=== PATIENT | female | born 1980 | race Caucasian/White ===

== ENCOUNTER 2018-09-05 07:33 | Emergency (ER) | payer MEDICAID ==
[~2018-09-05] VITALS: Ht 172.7 cm; Wt 96.4 kg
[2018-09-05 08:01] VITALS: BP 134/87; Ht 172.7 cm; Wt 96.4 kg
[2018-09-05] MEDS ORDERED: CLEOCIN HCL300 MG PO (08:47)
[2018-09-05] MEDS ORDERED: HYDROCODON-ACE1 EAC7 PO (08:47)
[2018-09-06] MEDS ORDERED: NORCO 10-325 TA1 TAB PO (15:29)
[2018-09-29 01:10] VITALS: Ht 172.7 cm; Wt 96.4 kg
== END 2018-09-05 09:11 | disposition home or self-care (01) ==
LOC: D.ER 07:33
DX: L02.512 Cutaneous abscess of left hand (principal); B19.20 Unspecified viral hepatitis C without hepatic coma; F17.200 Nicotine dependence, unspecified, uncomplicated

== ENCOUNTER 2018-09-06 13:21 | Emergency (ER) | payer MEDICAID ==
[~2018-09-06] VITALS: Ht 172.7 cm; Wt 100.0 kg
[~2018-09-06 13:21] MED LIST: CLEOCIN HCL300 MG PO; HYDROCODON-ACE1 EAC7 PO
[2018-09-06 13:35] VITALS: Ht 172.7 cm; Wt 100.0 kg
[2018-09-06] MEDS ORDERED: NORCO 10-325 TA1 TAB PO (15:29)
[2018-09-06 15:41] VITALS: BP 132/70
[2018-09-29 01:10] VITALS: Ht 172.7 cm; Wt 100.0 kg
== END 2018-09-06 15:42 | disposition home or self-care (01) ==
LOC: D.ER 13:21
DX: L02.512 Cutaneous abscess of left hand (principal); B19.20 Unspecified viral hepatitis C without hepatic coma; F17.200 Nicotine dependence, unspecified, uncomplicated

== ENCOUNTER 2018-09-28 19:51 | Observation (INO) | payer MEDICAID ==
[2018-09-28] VITALS (12 sets, daily range): BP systolic 101–124; BP diastolic 56–99
[~2018-09-28] VITALS: Ht 172.7 cm; Wt 91.2 kg
--- NOTE | ~2018-09-28 | MORECARE ---
CASE MANAGEMENT DISCHARGE SUMMARY PATIENT: CAROLYN ACOSTA UNIT: [id number] ADM DATE: 09/28/18 AGE: 38 : 80 SEX: F ROOM/BED: D.2312 AUTHOR: MICHELE RUTH PHYSICIAN: REFERRING PHYSICIAN: JAZMINE CARRILLO MD DATE OF SERVICE: 09/30/18 Discharge Plan Patient Name: CAR[facility]YN ACOSTA [facility] [facility] 1980 Planned Disposition: Psych facility Anticipated Discharge Date: 09/30/18 Discharge Date: Expected LOS: 2 Initial Reviewer: [email or web address] Initial Review Date: 09/30/2018 Generated: 09/30/18 7:40 pm Comments DCP- Discharge Planning Updated by [email or web address]: Jennifer Meier on 09/30/18 5:[address] Late Entry 09/30/18 @ 0945 Patient Name: CAROLYN ACOSTA Admission Status: ER Accout number: [id number] Admission Date: 09-28-2018 : 1980 Admission Diagnosis: Attending: JAZMINE CARRILLO Current LOS: 2 Anticipated DC Date: 09-30-2018 Planned Disposition: Psych facility Primary Insurance: MEDICAID [place] Discharge Planning Comments: CM received notice that patient is cleared medically stable for discharge to psychiatric facility. Patient states that she is prefer [facility] in [place] for placement. CM notified Edgard at transfer center of placement and faxed records. CM awaiting to here back for placement. Imaging Analyst: Jennifer Meier Last DP export: 09/30/18 5:26 Patient Name: CAROLYN ACOSTA Page [id number] at 1840 All edits/amendments must be made on the electronic document DICTATION DATE: 09/30/181838 MENTAL HEALTH DIRECTOR: SERENE 09/30/181838 RPT#: [id number] DC DATE: STATUS: ADM IN [facility] [address] [place] [address] END OF REPORT
--- NOTE | ~2018-09-28 | MORECARE ---
CASE MANAGEMENT DISCHARGE SUMMARY PATIENT: CAROLYN ACOSTA UNIT: [id number] ADM DATE: 09/28/18 AGE: 38 : 80 SEX: F ROOM/BED: D.2312 AUTHOR: MICHELE RUTH PHYSICIAN: REFERRING PHYSICIAN: JAZMINE CARRILLO MD DATE OF SERVICE: 09/30/18 Discharge Plan Patient Name: CAROLYN ACOSTA Facility: [facility] : 1980 Planned Disposition: Psych facility Anticipated Discharge Date: 09/30/18 Discharge Date: Expected LOS: 2 Initial Reviewer: [email or web address] Initial Review Date: 09/30/2018 Generated: 09/30/18 7:48 pm Comments DCP- Discharge Planning Updated by [email or web address]: Jennifer Meier on 09/30/18 5:[address] Late Entry 09/30/18 @ 1515 CM received notice that [facility] in [facility] has accepted patient. [facility] will transport patient to facility when available. Nursing will call report to facility. CM will continue to follow and assist as needed with discharge planning / needs. DCP- Discharge Planning Updated by [email or web address]: Jennifer Meier on 09/30/18 5:[address] Late Entry 09/30/18 @ 0945 Patient Name: CAROLYN ACOSTA Admission Status: ER Accout number: [id number] Admission Date: 09-28-2018 : 1980 Admission Diagnosis: Attending: JAZMINE CARRILLO Current LOS: 2 Anticipated DC Date: 09-30-2018 Planned Disposition: Psych facility Primary Insurance: MEDICAID [place] Discharge Planning Comments: CM received notice that patient is cleared medically stable for discharge to psychiatric facility. Patient states that she is prefer [facility] in [place] for placement. CM notified Edgard at transfer center of placement and faxed records. CM awaiting to here back for placement. Night Shift Supervisor: Jennifer Guzman DP export: 09/30/18 5:40 Patient Name: CAROLYN ACOSTA Page [id number] at 1848 All edits/amendments must be made on the electronic document DICTATION DATE: 09/30/181846 MACHINE SPRAYER: SERENE 09/30/181846 RPT#: [id number] DC DATE: STATUS: ADM IN [facility] [address] [place] [address] END OF REPORT
--- NOTE | ~2018-09-28 | MORECARE ---
CASE MANAGEMENT DISCHARGE SUMMARY PATIENT: CAROLYN ACOSTA UNIT: [id number] ADM DATE: 09/28/18 AGE: 38 : 80 SEX: F ROOM/BED: D.2312 AUTHOR: MICHELE RUTH PHYSICIAN: REFERRING PHYSICIAN: JAZMINE CARRILLO MD DATE OF SERVICE: 10/02/18 Discharge Plan Patient Name: CAROLYN ACOSTA Facility: [facility] : 1980 Planned Disposition: Psych facility Anticipated Discharge Date: 09/30/18 Discharge Date: 09/30/2018 Expected LOS: 2 Initial Reviewer: [email or web address] Initial Review Date: 09/30/2018 Generated: 10/02/18 11:26 am Comments DCP- Discharge Planning Updated by [email or web address]: Jennifer Meier on 09/30/18 5:[address] Late Entry 09/30/18 @ 1515 CM received notice that [facility] in [facility] has accepted patient. [facility] facility when available. Nursing will call report to facility. CM will continue to follow and assist as needed with discharge planning / needs. DCP- Discharge Planning Updated by [email or web address]: Jennifer Meier on 09/30/18 5:[address] Late Entry 09/30/18 @ 0945 Patient Name: CAROLYN ACOSTA Admission Status: ER Accout number: [id number] Admission Date: 09-28-2018 : 1980 Admission Diagnosis: Attending: JAZMINE CARRILLO Current LOS: 2 Anticipated DC Date: 09-30-2018 Planned Disposition: Psych facility Primary Insurance: [place]ID [place] Discharge Planning Comments: CM received notice that patient is cleared medically stable for discharge to psychiatric facility. Patient states that she is prefer [facility] in [place] for placement. CM notified Edgard at transfer center of placement and faxed records. CM awaiting to here back for placement. [employer] Supervisor: Jennifer Meier Last DP export: 09/30/18 5:48 Patient Name: CAROLYN ACOSTA Page [phone] at 1026 All edits/amendments must be made on the electronic document DICTATION DATE: 10/02/18 1025 LAYOUT WORKER: SERENE 10/02/18 1025 RPT#: [id number] DC DATE:09/30/18 STATUS: DIS IN [facility] [address] [facility] [address] END OF REPORT
--- NOTE | ~2018-09-28 | CN ---
PATIENT NAME:CAROLYN ACOSTA MEDICAL RECORD: [id number] : [birth year] LOCATION:[facility].2312 ADMIT DATE: 09/28/18 ACCOUNT: [id number] CONSULTING PHYSICIAN: DENNY HARRIS MD REFERRING PHYSICIAN: JAZMINE CARRILLO MD DATE OF CONSULTATION: 09/29/2018 PSYCHIATRIC CONSULTATION IDENTIFYING DATA: The patient is 38 years old and she is admitted to the hospital on a voluntary basis. CHIEF COMPLAINT: Overdose. HISTORY OF PRESENT ILLNESS: The patient took all or most of a bottle of her mother's blood pressure medicine. The medicine was clonidine. She lost consciousness and was brought to the hospital. When asked about it, she says that she was just doing something stupid, but she endorses that at the moment at least she was trying to kill herself. She denies any thoughts of harming others and psychotic symptoms. She endorses neurovegetative depressive symptoms. She has a diagnosis of bipolar disorder and was a patient at [facility] until they were closed in March of this year. Since then, she has been without her medications. She also has a problem with drug addiction, particularly methamphetamine, which she uses intravenously. 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 MENTAL STATUS EXAMINATION: The patient is awake; alert; and oriented to person, place, time, and situation. Her mood is depressed. Her affect is constricted. Thought processes are circumstantial. Memory, concentration, and abstraction abilities are mildly impaired and she denies any active intent to harm others and psychotic symptoms. She says she no longer has thoughts about harming herself. DIAGNOSTIC IMPRESSION: 1. Status post deliberate overdose. 2. Bipolar disorder, depressed phase. 3. Methamphetamine abuse. PLAN: At this time, the patient needs to be transferred to acute inpatient psychiatric care once medically stabilized. She is going to need to be placed on mood stabilizing antidepressant medications as deemed appropriate based upon her history and presentation. After that, she certainly will need to be referred to either residential or outpatient substance abuse services. TRANSINT:[id number] Voice Confirmation ID: [id number] DOCUMENT ID: [id number] DENNY HARRIS MD at 0932 CC: [id number] DICTATION DATE: 09/29/181649 CLINICAL NURSING INSTRUCTOR: 09/29/18 1745 ADM IN [facility] [address] [facility] [place] [address]
--- NOTE | ~2018-09-28 | MORECARE ---
CASE MANAGEMENT DISCHARGE SUMMARY PATIENT: CAROLYN ACOSTA UNIT: [id number] ADM DATE: 09/28/18 AGE: 38 : 80 SEX: F ROOM/BED: D.2312 AUTHOR: MICHELE RUTH PHYSICIAN: REFERRING PHYSICIAN: JAZMINE CARRILLO MD DATE OF SERVICE: 09/30/18 Discharge Plan Patient Name: CAROLYN ACOSTA Facility: [facility]:[place] : 1980 Planned Disposition: Psych facility Anticipated Discharge Date: 09/30/18 Discharge Date: Expected LOS: 2 Initial Reviewer: [email or web address] Initial Review Date: 09/30/2018 Generated: 09/30/18 7:26 pm External Providers External Provider: [facility] Next Contact Date: Service Request Date: Service Type: Resolution: Reviewer: Comments: Patient Name: CAROLYN ACOSTA Page [phone] at 1826 All edits/amendments must be made on the electronic document DICTATION DATE: 09/30/181825 CREW ATTENDANT: SERENE 09/30/181825 RPT#: [id number] DC DATE: STATUS: ADM IN [facility] [address] [place] [address] END OF REPORT
[~2018-09-28 19:51] MED LIST changes: +NORCO 10-325 TA1 TAB PO
[2018-09-28 20:43] LABS: BASOPHILS 0.2 % (0-2); EOSINOPHILS 1.9 % (0-7); HEMATOCRIT 39.7 % (36.0-48.0); HEMOGLOBIN 13.9 g/dL (12-16); IMMATURE GRANULOCYTES 0.3 % (0-5); LYMPHOCYTES 35.1 % (15-50); MCH 32.5 pg (26.0-34.0); MCV 92.8 fL (80.0-100.0); MEAN PLATELET VOLUME 11.5 fL (7.4-10.4); MONOCYTES 6.7 % (2-11); NEUTROPHILS 55.8 % (40-80); PLATELET COUNT 213 10x3/uL (130-400); RBC 4.28 10x6/uL (4.00-5.40); WBC 10.5 10x3/uL (4.8-10.8)
[2018-09-28 20:46] LABS: APPEARANCE CLOUDY (CLEAR); BILIRUBIN NEGATIVE (NEGATIVE); COLOR STRAW (YELLOW); GLUCOSE NEGATIVE (NEGATIVE); KETONE NEGATIVE (NEGATIVE); NITRITE NEGATIVE (NEGATIVE); PROTEIN NEGATIVE (NEGATIVE); SPECIFIC GRAVITY 1.005 (1.005-1.020); UROBILINOGEN NORMAL (NORMAL)
[2018-09-28 20:48] LABS: HCG URINE NEGATIVE (NEGATIVE)
[2018-09-28 20:51] LABS: UDS - BARB NEGATIVE QUAL (NEGATIVE); UDS - BENZO NEGATIVE QUAL (NEGATIVE); UDS - COCAINE NEGATIVE QUAL (NEGATIVE); UDS - PCP NEGATIVE QUAL (NEGATIVE)
[2018-09-28 21:03] LABS: ALBUMIN 3.6 g/dL (3.4-5.0); ANION GAP 11.9 mmol/L (8-16); BILIRUBIN - TOTAL 0.41 mg/dL (0.2-1.3); CALCIUM 9.2 mg/dL (8.5-10.1); CARBON DIOXIDE 26.8 mmol/L (21.0-32.0); POTASSIUM - SERUM 3.7 mmol/L (3.5-5.1); PROTEIN - SERUM 7.4 g/dL (6.4-8.2)
[2018-09-28 21:40] LABS: UDS - AMPHET POSITIVE QUAL (NEGATIVE); UDS - OPIATE POSITIVE QUAL (NEGATIVE)
[2018-09-28 21:41] LABS: UDS - THC POSITIVE QUAL (NEGATIVE)
[2018-09-29] VITALS (22 sets, daily range): BP systolic 94–118; BP diastolic 63–87; Ht 172.7 cm; Wt 91.2 kg
[2018-09-29 14:02] LABS: BASOPHILS 0.2 % (0-2); HEMOGLOBIN 14.1 g/dL (12-16); IMMATURE GRANULOCYTES 0.3 % (0-5); LYMPHOCYTES 30.3 % (15-50); MCH 32.3 pg (26.0-34.0); MCHC 33.6 g/dL (31.0-37.0); MEAN PLATELET VOLUME 11.8 fL (7.4-10.4); MONOCYTES 6.8 % (2-11); NEUTROPHILS 60.4 % (40-80); PLATELET COUNT 206 10x3/uL (130-400); RBC 4.36 10x6/uL (4.00-5.40); RDW 13.1 % (11.5-14.5)
[2018-09-29 14:05] LABS: MCV 96.3 fL (80.0-100.0)
[2018-09-29 14:11] LABS: ALBUMIN 3.3 g/dL (3.4-5.0); ALKALINE PHOSPHATASE 75 U/L (46-116); ALT (SGPT) 28 U/L (10-68); BILIRUBIN - TOTAL 0.51 mg/dL (0.2-1.3); CARBON DIOXIDE 24.7 mmol/L (21.0-32.0); CHLORIDE - SERUM 107 mmol/L (98-107); CREATININE - SERUM 0.8 mg/dL (0.6-1.3); POTASSIUM - SERUM 4.2 mmol/L (3.5-5.1); PROTEIN - SERUM 6.7 g/dL (6.4-8.2); SODIUM 143 mmol/L (136-145); eGFR NON AFRICAN AMERICAN 85 mL/min (90-120)
[2018-09-29 14:14] LABS: CALC OSMOLALITY 285 mosm/kg (275-300); GLUCOSE 127 mg/dL (74-106); UREA NITROGEN 9 mg/dL (7-18)
[2018-09-30] VITALS (10 sets, daily range): BP systolic 91–121; BP diastolic 56–85
[2018-09-30 04:39] LABS: BASOPHILS 0.2 % (0-2); EOSINOPHILS 2.6 % (0-7); HEMATOCRIT 39.1 % (36.0-48.0); HEMOGLOBIN 12.9 g/dL (12-16); IMMATURE GRANULOCYTES 0.2 % (0-5); LYMPHOCYTES 36.1 % (15-50); MEAN PLATELET VOLUME 12.5 fL (7.4-10.4); MONOCYTES 6.1 % (2-11); NEUTROPHILS 54.8 % (40-80); PLATELET COUNT 199 10x3/uL (130-400); RBC 4.03 10x6/uL (4.00-5.40); RDW 13.2 % (11.5-14.5)
[2018-09-30 04:51] LABS: CALC OSMOLALITY 282 mosm/kg (275-300); CALCIUM 8.6 mg/dL (8.5-10.1); CARBON DIOXIDE 26.8 mmol/L (21.0-32.0); CHLORIDE - SERUM 108 mmol/L (98-107); CREATININE - SERUM 0.7 mg/dL (0.6-1.3); GLUCOSE 114 mg/dL (74-106); POTASSIUM - SERUM 3.6 mmol/L (3.5-5.1); SODIUM 142 mmol/L (136-145); UREA NITROGEN 10 mg/dL (7-18); eGFR NON AFRICAN AMERICAN > 90 mL/min (90-120)
== END 2018-09-30 19:30 ==
LOC: D.ER 19:51 → OBSVTIME 22:32 → D.ICU 22:32
PROVIDERS: Family Medicine; Internal Medicine Nephrology
DX: T46.5X2A Poisoning by other antihypertensive drugs, intentional self-harm, initial encounter (principal); F31.9 Bipolar disorder, unspecified; B19.20 Unspecified viral hepatitis C without hepatic coma; F15.10 Other stimulant abuse, uncomplicated

== ENCOUNTER 2019-05-19 18:41 | Emergency (ER) | payer MEDICAID ==
[~2019-05-19] VITALS: Ht 172.7 cm; Wt 100.0 kg
[2019-05-19 18:45] VITALS: Ht 172.7 cm; Wt 100.0 kg
[2019-05-19] MEDS ORDERED: BUPROPION HCL150 M1 PO (18:50)
[2019-05-19] MEDS ORDERED: SEROQUEL25 MG PO (18:51)
[2019-05-19] MEDS ORDERED: BACLOFEN20 M1 PO (19:38)
[2019-05-19] MEDS ORDERED: TALWIN NX1 TAB PO (19:38)
[2019-05-19 20:04] VITALS: BP 109/69
== END 2019-05-19 20:02 | disposition home or self-care (01) ==
LOC: D.ER 18:41
DX: S20.212A Contusion of left front wall of thorax, initial encounter (principal); W18.30XA Fall on same level, unspecified, initial encounter; Y93.89 Activity, other specified; Y92.89 Other specified places as the place of occurrence of the external cause